=== PATIENT | male | born 1955 | race Caucasian/White ===

== ENCOUNTER 2024-11-14 10:14 | Outpatient (CLI) | payer MEDICARE ==
[2024-11-14 10:43] LABS: Hematocrit 40.3 % (42.0-52.0); Hemoglobin 14.6 g/dL (14.0-18.0)
[2024-11-14 11:42] LABS: Anion Gap 16 mmol/L (10-20); BUN (Urea Nitrogen) 14 mg/dL (8.4-25.7); Calc. Creatinine Clearance 0 mL/min (70-130); Calcium 9.2 mg/dL (7.8-10.44); Carbon Dioxide 22 mmol/L (23-31); Chloride 106 mmol/L (98-107); Glucose 57 mg/dL (80-115); Potassium 4.1 mmol/L (3.5-5.1); Sodium 140 mmol/L (136-145)
== END 2024-11-14 10:15 | disposition home or self-care (01) ==
LOC: BUREKG 10:14
PROVIDERS: ATTEND Otolaryngology Otolaryngic Allergy
DX: Z01.818 Encounter for other preprocedural examination (principal)
CPT/HCPCS: 36415; 80048; 85014; 85018; 93005; 93010